=== PATIENT | female | born 1945 | race Caucasian/White ===

== ENCOUNTER 2022-08-09 09:39 | Observation (INO) | payer OTHER ==
--- OUTSIDE RECORDS SUMMARY | 2022-08-09 09:43 | XMS REPORT | Continuity of Care Document ---
:1945 Author Organization [facility] t Address [address] [place] [address] Care Team Providers Name Role Phone Adalberto Leon Attending Clinician Unavailable Dani Attending Clinician Unavailable Ro Alcantara Attending Clinician Unavailable Ugo Valverde Attending Clinician Unavailable UNDEFINED Admitting Clinician Unavailable Physician, No Primary or Family Admitting Clinician Unavaila ble Dani Admitting Clinician Unavailable Ro Alcantara Admitting Clinician Unavailable Adalberto Leon Admitting Clinician Unavailable Ugo Valverde Admitting Clinician Unavailable Payers Payer Name Policy Type Policy Number Effective Date Expiration Date Suresh VILLANUEVA (MEDICARE [id number] 2021 REPLACEMENT PPO) 00:00:00 Problems Condition Condition Condition Status Onset Resolution Last Treating Co mments Source Name Details Category Date Date Treatment Clinician Date Body mass Body Mass Problem Active 2017-09 Jami via index 30+ Index 30+ 0-03 [facility] brinda - obesity - Obesity 00:00: 00 Allergies, Adverse Reactions, Alerts Allergy Allergy Status Severity Reaction(s) Onset Inactive Treating Comm ents Source Name Type Date Date Clinician No Known DA Active U 2020-09 [facility] All[facility]ie 0-18 [facility] 00:00: d 00 [facility] No Known DA Active U [facility] Allergie 7-12 Clear s 00:00: Varela 00 [facility] No Known DA Active U [facility] Allergie 03-11 Clear s 00:00: Varela 00 [facility] No Known DA Active U 2013-09 [facility] 0-13 [facility] Social History Smoking Status Start Date Stop Date Source Never Smoker [facility] Medications Ordered Filled Start Stop Current Ordering Indication Dosage Frequency Signature Comments Components Source Medication Medication Date Date Medication? Clinician (SIG) Name Name amlodipine amlodipine No amlodipine [facility] 2.5 mg 2.5 mg 2.5 mg Medical tablet TAKE tablet TAKE tablet 1 TABLET BY 1 TABLET BY TAKE 1 MOUTH EVERY MOUTH EVERY TABLET BY DAY DAY MOUTH EVERY DAY calcium calcium No calcium [facility] 1200mg 1200mg 1200mg Medical diclofenac diclofenac No diclofenac [facility] 1 % topical 1 % topical 1 % M edical gel APPLY 4 gel APPLY 4 topical GRAMS TO GRAMS TO gel APPLY THE THE 4 GRAMS TO AFFECTED AFFECTED THE AREA(S) BY AREA(S) BY AFFECTED TOPICAL TOPICAL AREA(S) BY ROUTE 4 ROUTE 4 TOPICAL TIMES PER TIMES PER ROUTE 4 DAY DAY TIMES PER DAY escitalopra escitalopra No escitalopr [facility] m 10 mg m 10 mg am 10 mg Medic al tablet TAKE tablet TAKE tablet 1 TABLET BY 1 TABLET BY TAKE 1 MOUTH EVERY MOUTH EVERY TABLET BY DAY DAY MOUTH EVERY DAY levothyroxi levothyroxi No levothyrox [facility] ne 150 mcg ne 150 mcg ine 150 Medical tablet TAKE tablet TAKE mcg tablet 1 TABLET BY 1 TABLET BY TAKE 1 MOUTH EVERY MOUTH EVERY TABLET BY OTHER DAY OTHER DAY MOUTH ALT WITH ALT WITH EVERY SYNTHROID SYNTHROID OTHER DAY 175MCG 175MCG ALT WITH SYNTHROID 175MCG losartan losartan No losartan Jami via 100 mg 100 mg 100 mg Medical tablet TAKE tablet TAKE tablet 1 TABLET BY 1 TABLET BY TAKE 1 MOUTH EVERY MOUTH EVERY TABLET BY DAY DAY MOUTH EVERY DAY metformin metformin No metformin [facility] ER 500 mg ER 500 mg ER 500 mg Medical tablet,exte tablet,exte tablet,ext nded nded ended release 24 release 24 release 24 hr TAKE 2 hr TAKE 2 hr TAKE 2 TABLETS BY TABLETS BY TABLETS BY MOUTH EVERY MOUTH EVERY MOUTH DAY AT DAY AT EVERY DAY BEDTIME BEDTIME AT BEDTIME nitrofurant nitrofurant No nitrofuran [facility] oin oin toin Medical monohydrate monohydrate monohydrat /macrocryst /macrocryst e/macrocry als 100 mg als 100 mg stals 100 capsule 1 capsule 1 mg capsule tablet tablet 1 tablet after after after cystoscopy, cystoscopy, cystoscopy second second , second tablet 12 tablet 12 tablet 12 hours later hours later hours later nystatin nystatin No nystatin [facility] via 100,000 100,000 100,000 Medica l unit/gram unit/gram unit/gram topical topical topical cream APPLY cream APPLY cream 1 1 APPLY 1 APPLICATION APPLICATION APPLICATIO EXTERNALLY EXTERNALLY N TWICE A DAY TWICE A DAY EXTERNALLY FOR 7 DAYS FOR 7 DAYS TWICE A DAY FOR 7 DAYS Ocuvite Ocuvite No Ocuvite [facility] rosuvastati rosuvastati No rosuvastat [facility] n 10 mg n 10 mg in 10 mg Medic al tablet TAKE tablet TAKE tablet 1 TABLET BY 1 TABLET BY TAKE 1 MOUTH EVERY MOUTH EVERY TABLET BY DAY DAY MOUTH EVERY DAY Trelegy Trelegy No Trelegy [facility] Ellipta 100 Ellipta 100 [facility] Medical mcg-62.5 mcg-62.5 100 mcg-25 mcg mcg-25 mcg mcg-62.5 powder for powder for mcg-25 mcg inhalation inhalation powder for INHALE 1 INHALE 1 inhalation PUFF BY PUFF BY INHALE 1 MOUTH EVERY MOUTH EVERY PUFF BY DAY DAY MOUTH EVERY DAY trospium ER trospium ER No 1capsul Q1D trospium [facility] 60 mg 60 mg e(s) ER 60 mg Medical capsule,ext capsule,ext capsule,ex ended ended tended release 24 release 24 release 24 hr Take 1 hr Take 1 hr Take 1 capsule capsule capsule every day every day every day by oral by oral by oral route as route as route as directed directed directed for 90 for 90 for 90 days. days. days. Vitamin D3 Vitamin D3 No Vitamin D3 [facility] zolpidem 10 zolpidem 10 No zolpidem [facility] mg tablet mg tablet 10 mg Medi brinda TAKE 1 TAKE 1 tablet TABLET BY TABLET BY TAKE 1 MOUTH EVERY MOUTH EVERY TABLET BY DAY AT DAY AT MOUTH BEDTIME BEDTIME EVERY DAY NEEDED NEEDED AT BEDTIME NEEDED Vital Signs Vital Name Observation Time Observation Value Comments Source BP Diastolic 2022-08-05 00:00:00 100 mm[Hg] Yobany Diaz joaquín Height 2022-08-05 00:00:00 64 [in_i] Yobany Diaz joaquín BMI (Body Mass Index) 2022-08-05 00:00:00 30.9 kg/m2 [facility] BP Systolic 2022-08-05 00:00:00 169 mm[Hg] Yobany Diaz edical Body Weight 2022-08-05 00:00:00 180 [lb_av] Yobany Diaz edical Procedures Procedure Date / Time Performing Clinician Source Performed [id number] 2021-06-23 00:00:[address] [facility] Orthopedic - Knee 2020-09-06 00:00:00 [facility] Orthopedic - Knee 2013-09-06 00:00:00 [facility] Replacement Hysterectomy - Vaginal 1977-09-06 00:00:00 [facility] Plan of Care Planned Activity Planned Date Details Comments Source Diagnostic Test Pending 2022-08-05 00:00:00 [facility] complete [code = urinalysis, complete] Diagnostic Test Pending 2022-08-05 00:00:00 culture, urine [facility] Medical [code = culture, urine] Future Appointment 2022-09-17 13:00:00 Tami Hutchins, [address] [facility] Medical [address]; [address], [place] [address] Encounters Start End Encounter Admission Attending Care Care Encounter Source Date/Time Date/Time Type Type Clinicians Facility Department ID 2021-06-23 Inpatient GLADYS LeonTO [id number] [facility] 09:15:00 Adalberto [id number] [facility] 2021-05-26 Inpatient GLADYS LeonTO [id number] [facility] 15:00:00 Adalberto [id number] [facility] 2021-01-20 Inpatient EL GLADYS Leon [facility] [id number] [facility] 13:00:00 Adalberto [id number] [facility] 2022-08-05 2022-08-05 Outpatient DAVE PRIV PRIV [id number] [facility] 00:00:00 00:00:00 _Flora [id number] Medica l 2022-08-05 2022-08-05 [facility] [id number] [facility] DAVE Hines MD: [id number], Office* [address], [place] [address] , Ph. [phone] 2022-07-28 2022-07-28 Outpatient [facility] PRIV PRIV [id number] [facility] 00:00:00 00:00:00 _Flora [id number] Medica l 2022-07-06 2022-07-06 Outpatient [facility] PRIV PRIV [id number] [facility] 00:00:00 00:00:00 _Flora [id number] Medica l 2021-11-04 2021-11-04 Outpatient MARCO Alcantara [facility] REY [id number] [facility] 08:00:00 08:00:00 Ro 59 [facility] 2021-06-23 2021-06-24 Inpatient MARCO Leon [facility] [id number] [facility] 08:55:00 13:16:00 Adalberto 85 [facility] 2021-05-26 2021-05-26 Outpatient MARCO Leon RITCHIETO 3DAY [id number] [facility] 09:00:00 23:00:00 Adalberto 90 [facility] 2021-05-26 2021-05-26 Outpatient Edward HCACL LABO [id number] [facility] 18:17:00 18:17:00 Adalberto 16 [facility] 2021-05-26 2021-05-26 Outpatient Edward HCAWU REFE [id number] [facility] 18:07:00 18:07:00 Adalberto 49 [facility] 2021-03-17 2021-03-17 Outpatient EL Elkousliz, HCAT[facility] DAYS [id number] [facility] 05:41:00 05:41:00 Ugo [id number] [facility] 2021-03-11 2021-03-11 Outpatient Marcokalliz, HCAC[facility] LABO [id number] [facility] 18:16:00 18:16:00 Ugo 82 [facility] 2021-03-11 2021-03-11 Inpatient EL Elchandler, [facility]G [id number] [facility] 14:40:00 14:40:00 Ugo [id number] [facility] 2020-10-31 2020-10-31 Outpatient RICHARDSON Alva [id number] [facility] 12:00:00 12:00:00 Ro Alejandro [facility] 2019-09-25 2019-09-25 Outpatient RICHARDSON Alva [id number] [facility] 12:00:00 12:00:00 Ro Thompson [facility] 2018-06-17 2018-06-17 Outpatient GC_SWHAWPRC PRIV PRIV [id number] [facility] 00:00:00 00:00:00 _Cathey [id number] Medica l Results Test Description Test Time Test Comments Results Result Comments Source GLUBED 2021-06-24 08:28:00 Test Item Value Reference Range Interpretation Comme nts GLUBED (test code = GLUBED) 237 mg/dL 60-125 H BASIC METABOLIC [id number] 06:49:00 Test Item Value Reference Range Interpretation Comments SODIUM (test code = 141 mmol/L 136-145 N NA) POTASSIUM (test code = 4.9 mmol/L 3.5-5.1 N K) CHLORIDE (test code = 104.0 mmol/L 98-107 N CL) CARBON DIOXIDE (test 30.1 mmol/L 21-32 N code = CO2) GLUCOSE (test code = 174 mg/dL 70-110 H GLU) BLOOD UREA NITROGEN 19 mg/dL 7-18 H (test code = BUN) GLOMERULAR FILTRATION 74.9 >60 Unit o f measure: RATE (test code = GFR) mL/mi n/1.73 [id number] Range:Healthy Adults >90 mL/min/1.73 m2 For Chronic Kidney Disease: Stage II Mild Decrease i n GFR 60-90 Stage III Moderate Decrea se in GFR 30-59 St age IV Severe Decre ase in GFR 15-29 St age V Kidney Failur e <15 CREATININE (test code 0.75 mg/dL 0.55-1.30 N = CREAT) CALCIUM (test code = 8.2 mg/dL 8.2-10.1 N CA) HGB [id number] 06:01:00 Test Item Value Reference Range Interpretation Comments HEMOGLOBIN (test code = HGB) 11.3 g/dL 12-16 L HEMATOCRIT (test code = HCT) 34.0 % 37-47 L SPECIMEN COMMENT: POD #[id number] 05:47:00 Test Item Value Reference Range Interpretation Comments GLUBED (test code = GLUBED) 158 mg/dL 60-125 H [id number] 20:08:00 Test Item Value Reference Range Interpretation Comments GLUBED (test code = GLUBED) 232 mg/dL 60-125 H [id number] 11:19:00 Test Item Value Reference Range Interpretation Comments GLUBED (test code = GLUBED) 152 mg/dL 60-125 H [id number] 09:24:00 Test Item Value Reference Range Interpretation Comments GLUBED (test code = GLUBED) 149 mg/dL 60-125 H GLYCOSYLATED HEMOGLOBIN (HA1C)2021-05-26 20:30:00 Test Item Value Reference Range Interpretation Comments GLYCOSYLATED 7.3 % 4.8-5.9 H Any condition t hat shortens HEMOGLOBIN (HA1C) erythocyte survival or (test code = GLYHGB) decreas esmean erythrocyte age (e.g., jaspreet very from acute blood los s,hemolytic anemai) will fa lsely lower HGBA1c resultsr egardless of the method used . HGBA1c results frompat ients with HbSS, HbCC and HbSc must be interpreted wit hcaution given the patho logical processes, incl uding anemia,increase d red cell turnover, trans fusion requirements, t hatadversely impact HGBA1c a s a marker of long-term glycemiccontrol . Alternative for ms of testing such as fructosaminesho uld be considered for these patients.Any co ndition that shortens erytho cyte survival or dec reasesmean erythrocyte age (e.g., recovery from a cute blood loss,hemolytic anemia) will falsely lower H GBA1c resultsregardle ss of the method used. HG BA1c results from patientswi th HbSS, HbCC, and HbSc must be interpreted wit h cautiongiven th e pathological pr ocesses, including anemi a,increased red cell turnov er, transfusion req uirements, thatadversely i mpact HGBA1c as a marker of long-term glycemiccontrol . Alternative for ms of testing such as fructosaminesho uld be considered for these patients.DONE A T: [facility] [address] [place], [place] [address] GLYCOSYLATED HEMOGLOBIN (HA1C)2021-05-26 20:30:00 Test Item Value Reference Range Interpretation Comments GLYCOSYLATED 7.3 % 4.8-5.9 H Any condition t hat shortens HEMOGLOBIN (HA1C) erythocyte survival or (test code = GLYHGB) decreas esmean erythrocyte age (e.g., jaspreet very from acute blood los s,hemolytic anemia) will fa lsely lower HGBA1c resultsr egardless of the method used . HGBA1c results from lucien canales HbSS, HbCC, and HbSc must be interpreted with cautiongiven th e pathological pr ocesses, including anemi a,increased red cell turnov er, transfusion req uirements, thatadversely i mpact HGBA1c as a marker of long-term glycemiccontrol . Alternative for ms of testing such as fructosaminesho uld be considered for these patients. PROTHROMBIN [id number] 20:04:00 Test Item Value Reference Range Interpretation Comments PROTHROMBIN TIME 10.3 secs 10.1-12.5 N PATIENT (test code = PTP) INTERNATIONAL NORMAL 0.90 <2.0 RECOMME NDED THERAPEUTIC RATIO (test code = RANGE FOR ORAL INR) ANTICOAGULANTTR EATMENT: CONDITION INRPr ophylaxis of venous throm bosis in 2.0 - 3.0 high- risk medical or surg ical patientsTreatme nt of venous thrombos is 2.0 - 3.0Prevention o f embolism 2.0 - 3.0Prevention o f recurrent embol ism, or 3.0 - 4.5 patie nts with mechanical pros thetic intravascular v gomez IS PATIENT ON ANTICOAGULANTS ? NHas Lab been notified if Patient is on Heparin Drip? NOIf Yes, orderCBC, OCCULT BLOOD, PT every other day NTHROMBOPLASTIN TIME [id number] 20:04:00 Test Item Value Reference Range Interpretation Comments PTT ACTIVATED (test code = APTT) 28.2 secs 24.9-37.0 N IS PATIENT ON ANTICOAGULANTS ? NHas Lab been notified if Patient is on Heparin Drip? NOIf Yes, orderCBC, OCCULT BLOOD, PT every other day NCOMPREHENSIVE METABOLIC [id number] 20:00:00 Test Item Value Reference Range Interpretation Comments SODIUM (test code = 143 mmol/L 136-145 N NA) POTASSIUM (test code = 4.1 mmol/L 3.5-5.1 N K) CHLORIDE (test code = 103.0 mmol/L 98-107 N CL) CARBON DIOXIDE (test 29.1 mmol/L 21-32 N code = CO2) GLUCOSE (test code = 153 mg/dL 70-110 H GLU) BLOOD UREA NITROGEN 19 mg/dL 7-18 H (test code = BUN) GLOMERULAR FILTRATION 86.8 >60 Unit o f measure: RATE (test code = GFR) mL/mi n/1.73 [id number] Range:Healthy Adults >90 mL/min/1.73 m2 For Chronic Kidney Disease: Stage II Mild Decrease i n GFR 60-90 Stage III Moderate Decrea se in GFR 30-59 St age IV Severe Decre ase in GFR 15-29 St age V Kidney Failur e <15 CREATININE (test code 0.66 mg/dL 0.55-1.30 N = CREAT) TOTAL PROTEIN (test 6.6 g/dL 6.4-8.2 N code = PROT) ALBUMIN (test code = 3.6 g/dL 3.4-5.0 N ALB) GLOBULIN (test code = 3.0 g/dL 2.2-4.2 N GLOB) ALBUMIN/GLOBULIN RATIO 1.2 0.7-2.0 N (test code = A/G) CALCIUM (test code = 8.9 mg/dL 8.2-10.1 N CA) BILIRUBIN TOTAL (test 0.20 mg/dL 0.2-1.00 N code = BILT) SGOT/AST (test code = 20.0 U/L 15-37 N AST) SGPT/ALT (test code = 37.0 U/L 12-78 N Please note new ALT) normal range. ALKALINE PHOSPHATASE 65 U/L 46-116 N TOTAL (test code = ALKP) CBC W/AUTO [id number] 19:48:00 Test Item Value Reference Range Interpretation Comments WHITE BLOOD CELL (test code = WBC) 8.3 K/mm3 5.8-11.0 N RED BLOOD CELL (test code = RBC) 4.44 M/mm3 4.2-5.4 N HEMOGLOBIN (test code = HGB) 13.9 g/dL 12-16 N HEMATOCRIT (test code = HCT) 41.9 % 37-47 N MEAN CELL VOLUME (test code = MCV) 94 fL 80-98 N MEAN CELL HGB (test code = MCH) 31.3 pg 27-34 N MEAN CELL HGB CONCENTRATION (test 33.2 g/dL 30.8-34.1 N code = MCHC) RED CELL DISTRIBUTION WIDTH (test 13.6 % 11-16 N code = RDW) PLT (test code = PLT) 348 K/mm3 130-400 N MEAN PLATELET VOLUME (test code = 10.1 fL 8.9-12.1 N MPV) NEUTROPHIL % (test code = NT%) 63.0 % 45-70 N LYMPHOCYTE % (test code = LY%) 25.3 % 20-40 N MONOCYTE % (test code = MO%) 8.7 % 3-10 N EOSINOPHIL % (test code = EO%) 2.2 % 1-5 N BASOPHIL % (test code = BA%) 0.7 % 0.0-1.1 N NEUTROPHIL # (test code = NT#) 5.20 K/mm3 2.00-7.50 N LYMPHOCYTE # (test code = LY#) 2.09 K/mm3 1.50-4.00 N MONOCYTE # (test code = MO#) 0.72 K/mm3 0.2-0.8 N EOSINOPHIL # (test code = EO#) 0.18 K/mm3 0.04-0.4 N BASOPHIL # (test code = BA#) 0.06 K/mm3 0.02-0.10 N MANUAL DIFF REQUIRED (test code = NO MANUAL DIFF MDIFF) NUCLEATED RED BLOOD CELL (test 0 % 0-0 N code = NRBC) [id number] 10:46:00 Test Item Value Reference Range Interpretation Comments GLUBED (test code = GLUBED) 121 mg/dL 60-125 N Novel Coronavirus 2018 [id number] 10:07:00 Test Item Value Reference Range Interpretation Comments Novel Coronavirus Negative Negative Positive r esults are 2019 Inhouse (test indicativ e of the presence code = COVNONPUI) ofSARS-CoV -2 RNA, clinical correlation wit h patient historyand othe r diagnostic info rmation is necessary to determinepatien t infection status. Positiv e results do not rule out bacterial infection or co -infection with other viru ses. Negative result s do not preclude SARS-C oV-2 infection andsh ould not be used as the mikayla e basis for patient managementdecis ions. Negative result s must be combined with otherclinical observations, p atient history, and epidemiological information . Detection of SARS-CoV-2 RNA may be affe cted bysample collec tion methods, storag e conditions, and /or stageof infection. Katherine l RNA mutations, vacc inations, antiviraltherap eutics, antibiotics, chemotherapeuti c orimmunosuppres elaine drugs have not been e valuated for effectson d etection. Results are for the identification of SARS-CoV-2 RNA usingthe [employer] M2000 Sy stem under the [facility] Emergen cy UseAuthorizatio n. The testing is perf ormed by personneltraine d in the procedures for the Ramirez M2000 molecular diagnostic SARS-CoV-2 assa y in vitro. Novel Coronavirus 2018 [id number] 10:07:00 Test Item Value Reference Range Interpretation Comments Novel Coronavirus Negative Negative Positive r esults are 2019 Inhouse (test indicativ e of the presence code = COVNONPUI) ofSARS-CoV -2 RNA, clinical correlation wit h patient historyand othe r diagnostic info rmation is necessary to determinepatien t infection status. Positiv e results do not rule out bacterial infection or co -infection with other viru ses. Negative result s do not preclude SARS-C oV-2 infection andsh ould not be used as the mikayla e basis for patient managementdecis ions. Negative result s must be combined with otherclinical observations, p atient history, and epidemiological information . Detection of SARS-CoV-2 RNA may be affe cted bysample collec tion methods, storag e conditions, and /or stageof infection. Katherine l RNA mutations, vacc inations, antiviraltherap eutics, antibiotics, chemotherapeuti c orimmunosuppres elaine drugs have not been e valuated for effectson d etection. Results are for the identification of SARS-CoV-2 RNA usingthe Ramirez M2000 Sy stem under the [facility] Emergen cy UseAuthorizatio n. The testing is perf ormed by personneltraine d in the procedures for the Ramirez M2000 molecular diagnostic SARS-CoV-2 [place] in vitro. - MRI LW JNT W/O CONT [id number] 15:34:00 [facility] : 1945 Sex: FPatient Name: KELVIN CRAWFORD Unit No: [id number] EXAMS: CPT CODE: [id number] MRI LW JNT W/[place] [id number] MRI OF THE RIGHT KNEE DIAGNOSIS: 1. Horizontal tear through the tibial articular surfaceof the body and posterior horn of the medial meniscus with extension into the posterior root and partial extrusion of the body of the meniscus. 2. Horizontal tear of the anterior horn of the lateral men iscus near the meniscal root. 3. Chondromalacia of the patella with partial- thickness cartilage lossand subchondral cyst formation. A moderate to large joint effusion is present without evidence for aloose body. COMMENT: COMPARISON: No prior exams available. Scans were performed in the sagittal, axial and coronal planes utilizing T1, spin density with fat saturation and T2-weighted pulse sequences.Bony and hyaline cartilage abnormalities are present as described. The body and posterior horn of the medial meniscus and the anterior horn the lateral meniscus are torn. The anterior horn of the medial meniscus and the posterior horn of the lateral meniscus are within normal limits in appearance. No abnormality is seen involving the anterior or posterior cruciate or medial or lateral collateral ligaments. The quadriceps and patellar tendons are intact. at 1534 Reported and signed by: Damian Olvera MD CC: Adalberto Leon MD Technologist: Caren Sanchez RT(R) Transcribed D/ (1533) Kelly.JCL [facility] NAME: KELVIN CRAWFORD [address] [facility] PHYS: Adalberto Ortiz : 1945 AGE: 75 SEX: F [place] [address] LOC: Y.MRI PHONE #: [phone] EXAM DATE: 01/20/2021 STATUS: REG CLI FAX #: [phone] RAD #: D/C DT PAGE 1 Signed Report Patient Name: KELVIN CRAWFORD Unit No: [id number] EXAMS: CPT CODE: [id number] MRI LW JNT W/[place] [id number] (Continued) Orig Print D/T: S: 01/20/2021 (1538) [facility] NAME: KELVIN CRAWFORD [address] [facility] PHYS: Adalberto Ortiz : 1945 AGE: 75 SEX: F [place] [address] LOC: Y.MRI PHONE #: [phone] EXAM DATE: 01/20/2021 STATUS: REG CLI FAX #: [phone] RAD #: D/C DT PAGE 2 Signed Report- MRI UP JNT W/O CONT [id number] 14:11:00 Patient Name: KELVIN CRAWFORD Unit No: [id number] EXAMS: CPT CODE: [id number] MRI UP JNT W/[place] [id number] MR of the right shoulder without contrast TECHNIQUE: Paracoronal, parasagittal and axial multisequence images obtained. COMPARISON: None available. FINDINGS: Acromioclavicular joint: Moderate degenerative changes. Rotator cuff: High-grade tear of the anterior supraspinatus insertion measures 1 cm transversely, likely reaching full-thickness. Minimal tendon retraction is present. There is tendinosis and interstitial tear of the posterior supraspinatus and anterior infraspinatus tendons.Moderate atrophy of the teres minor muscle. Long head biceps tendon: The biceps tendon is medially subluxated with superimposed tendinosis. Labrum: No evidence of labral tear. Cartilage/ bone: No full thickness chondral defect. No acute fracture. No suspicious osseous lesion. Other: No joint effusionpresent. IMPRESSION: 1. High-grade tear the anterior supraspinatus tendon, likely full-thickness with minimal tendon retraction. 2. Moderate teres minor muscle atrophy. 3. Subluxation and tendinosis ofthe long head of the biceps tendon. at 1411 Reported and signed by: Oral William M.D. CC: Reyes Easton MD Technologist: Joe Olvera(R) Transcribed D/ (0872) Rolando [facility] NAME: KELVIN CRAWFORD [address] [facility] PHYS: Reyes Maharaj : 1945 AGE: 74 SEX: F [place] [address] LOC: Y.MRI PHONE #: [phone] EXAM DATE: 04/27/2019 STATUS: DEP CLI FAX #: [phone] RAD #: D/C DT PAGE 1 Signed Report Patient Name: KELVIN MURILLO Unit No: [id number] EXAMS: CPT CODE: [id number] MRI [place] JNT W/[place] [id number] (Continued) Orig Print D/T: S: 04/29/2019 (1414) [facility] NAME: KELVIN CRAWFORD[address] [facility] PHYS: Reyes Maharaj : 1945 AGE: 74 SEX: F [place] [address] LOC: Y.MRI PHONE #: [phone] EXAM DATE: 04/27/2019 STATUS: DEP CLI FAX #: [phone] RAD #: D/C DT PAGE 2 Signed Report
[2022-08-09 10:35] LABS: Urine Blood Negative (Negative); Urine Glucose Negative (Negative); Urine Protein Negative (Negative); Urine Specific Gravity >=1.030 (1.005-1.030); Urine pH 5.5 (5.0-7.0)
--- NOTE | 2022-08-09 10:39 | RAD REPORT ---
EXAM DESCRIPTION: CT - Ct Stroke Brain Wo Cont - 08/09/2022 10:23 am CLINICAL HISTORY: Neuro deficit, acute, stroke suspected, Stroke protocol examination COMPARISON: <Comparisons>none TECHNIQUE: Axial 5 millimeter thick images of the head were obtained without IV contrast. All CT scans are performed using dose optimization technique as appropriate and may include automated exposure control or mA/KV adjustment according to patient size. FINDINGS: No intracranial hemorrhage, mass, or cerebral edema. No acute cortical based infarction se en. No cortical edema or sulcal effacement. Patient has atrophy changes are minimal. Ventricles are n ormal for the amount of volume loss. Chronic ischemic change seen in the cerebral white matter. No ex tra-axial fluid collections. [place] matter-white matter differentiation is preserved.Dense arterial tr ee calcifications are present. No globe or orbital content abnormality. Visualized portions of the mastoid air cells, paranasal sinuses, and orbits are unremarkable. Findings telephoned to Dr Boyle 10:34 a.m.. IMPRESSION: No hemorrhage. No acute CVA identifiable. Patient has minimal atrophy and mild chronic ischemic change.
[2022-08-09 10:49] LABS: Absolute Lymphocytes (CBC) 1.8 K/uL (0.7-4.9); Hematocrit 40.4 % (36.0-45.0); Lymphocytes % 22.5 % (15.3-44.8); MCV 91.3 fL (80-100); MPV 7.3 fL (7.6-11.3); RBC Red Blood Cell Count 4.42 M/uL (3.86-4.86)
[2022-08-09] MEDS ORDERED: FOLIC ACID 5 MG/ML VIAL ONE (10:49)
[2022-08-09 10:50] LABS: Protime INR 0.93
[2022-08-09 11:02] LABS: SARS-CoV-2 Antigen Rapid Res Negative (Negative)
[2022-08-09 11:03] LABS: Albumin 3.6 g/dL (3.4-5.0); BUN Blood Urea Nitrogen 14 mg/dL (7-18); Bicarbonate 29 mmol/L (21-32); Glucose Level 174 mg/dL (74-106); Magnesium 1.6 mg/dL (1.8-2.4); Potassium 3.3 mmol/L (3.5-5.1); Sodium Level 139 mmol/L (136-145)
[2022-08-09] MEDS ORDERED: ASPIRIN 81 MG CHEWABLE TABLET ONE ×2 (11:03→13:25)
[2022-08-09 11:11] LABS: ALT/SGPT 40 U/L (12-78); AST/SGOT 21 U/L (15-37); Alkaline Phosphatase 77 U/L (45-117); Bilirubin Direct < 0.1 mg/dL (0-0.2); Bilirubin Total 0.3 mg/dL (0.2-1.0); Glomerular Filtration Rate 89 ml/min (=/>90); NT PRO-BNP 42 pg/mL (<450); Protein, Total 6.9 g/dL (6.4-8.2); Troponin High Sensitivity 8.4 pg/mL (<58.9)
--- NOTE | 2022-08-09 11:29 | RAD REPORT ---
EXAM DESCRIPTION: CT - Neck Angio - 08/09/2022 11:07 am CLINICAL HISTORY: Neuro deficit, acute, stroke suspected TECHNIQUE: During dynamic enhancement using nonionic IV contrast, axial 2 mm thick images of the nec k were obtained. Sagittal and axial reconstruction images were generated using MIP technique and revi ewed. All CT scans are performed using dose optimization technique as appropriate and may include automated exposure control or mA/KV adjustment according to patient size. COMPARISON: CT head same date, CT angio head same date FINDINGS: No aneurysm or vascular malformation identified. No carotid or vertebral dissection. No aortic arch or great vessel origin abnormality seen. Vertebral artery origins unremarkable as well . No stenosis, vasculitis or other significant carotid artery finding. Minimal atherosclerotic change s present at each carotid bulb without luminal narrowing. No focal abnormality of either vertebral ar janes. Basilar artery is normal. IMPRESSION: Negative CT angio neck examination.
--- NOTE | 2022-08-09 11:31 | RAD REPORT ---
EXAM DESCRIPTION: CT - Head angio - 08/09/2022 11:07 am CLINICAL HISTORY: Neuro deficit, acute, stroke suspected TECHNIQUE: During dynamic enhancement using nonionic IV contrast, axial 1 millimeter thick images of the head were obtained. Sagittal and axial reconstruction images were generated using MIP technique and reviewed. All CT scans are performed using dose optimization technique as appropriate and may include automated exposure control or mA/KV adjustment according to patient size. COMPARISON: CT head same date, CT angio neck same date FINDINGS: No aneurysm or vascular malformation identified. Major venous sinuses are patent. No stenosis, named branch occlusion, vasculitis or other significant vascular finding identifiable. C arotid atherosclerotic changes are present in the cavernous sinuses. No measurable luminal narrowing. IMPRESSION: Negative CT angio head examination for acute or significant finding.
--- NOTE | 2022-08-09 12:12 | RAD REPORT ---
EXAM DESCRIPTION: RAD - Chest Single View - 08/09/2022 11:44 am CLINICAL HISTORY: COUGH, code stroke chest film COMPARISON: None TECHNIQUE: AP portable chest image was obtained 08/09/2022 11:44 am . FINDINGS: Lungs are clear. Heart and vasculature are normal. No measurable pleural effusion and no p neumothorax. Hazy appearance to the hemidiaphragm and left costophrenic angle believed to be portable exam artifact. No acute bony abnormality seen. No acute aortic findings suspected. IMPRESSION: No acute cardiopulmonary process.
--- NOTE | 2022-08-09 12:31 | EDPHYS ---
Physician Documentation [facility] Name: Sil Díaz Age: 77 yrs Sex: Female : 1945 Arrival Date: 08/09/2022 Time: 09:41 Bed 3 Private MD: Isael Levin T ED Physician Rafa Boyle HPI: 08/09 12:27 This 77 yrs old Unknown Female presents to ER via Ambulatory with complaints of aniya Dizziness, High Blood Pressure. 12:27 The patient presents with dizziness, generalized weakness, lightheadedness, sense of aniya spinning. Onset: The symptoms/episode began/occurred 3 day(s) ago. Context: occurred. Modifying factors: The symptoms are alleviated by nothing, the symptoms are aggravated by standing up. Associated signs and symptoms: Pertinent positives: confusion. Severity of symptoms: At their worst the symptoms were mild in the emergency department the symptoms are unchanged. Patient's baseline: Neuro: alert and fully oriented. The patient has experienced similar episodes in the past, a few times. Historical: - Allergies: 10:13 No Known Allergies; kb3 - PMHx: 10:13 Hypercholesterolemia; Hypertensive disorder; NIDDM; Bladder spasms; COPD; kb3 - PSHx: 10:13 Total abdominal hysterectomy; Cholecystectomy; Bilateral Knee Sx; kb3 - Immunization history:: Adult Immunizations up to date, Client reports having NOT received the Covid vaccine. Last tetanus immunization: unknown. - Social history:: Smoking status: Patient reports the use of cigarette tobacco products, denies chronic smoking, but will smoke occasionally. - Family history:: not pertinent. ROS: 12:27 Constitutional: Negative for fever, chills, and weight loss, Eyes: Negative for injury, aniya pain, redness, and discharge, ENT: Negative for injury, pain, and discharge, Neck: Negative for injury, pain, and swelling, Cardiovascular: Negative for chest pain, palpitations, and edema, Respiratory: Negative for shortness of breath, cough, wheezing, and pleuritic chest pain, Abdomen/GI: Negative for abdominal pain, nausea, vomiting, diarrhea, and constipation, Back: Negative for injury and pain, : Negative for injury, bleeding, discharge, and swelling, MS/Extremity: Negative for injury and deformity, Skin: Negative for injury, rash, and discoloration, Psych: Negative for depression, anxiety, suicide ideation, homicidal ideation, and hallucinations, Allergy/Immunology: Negative for hives, rash, and allergies, Endocrine: Negative for neck swelling, polydipsia, polyuria, polyphagia, and marked weight changes, Hematologic/Lymphatic: Negative for swollen nodes, abnormal bleeding, and unusual bruising. 12:27 Neuro: Positive for altered mental status, dizziness, weakness. Exam: 12:27 Constitutional: This is a well developed, well nourished patient who is awake, alert, aniya and in no acute distress. Head/Face: Normocephalic, atraumatic. Eyes: Pupils equal round and reactive to light, extra-ocular motions intact. Lids and lashes normal. Conjunctiva and sclera are non-icteric and not injected. Cornea within normal limits. Periorbital areas with no swelling, redness, or edema. ENT: Nares patent. No nasal discharge, no septal abnormalities noted. Tympanic membranes are normal and external auditory canals are clear. Oropharynx with no redness, swelling, or masses, exudates, or evidence of obstruction, uvula midline. Mucous membranes moist. Neck: Trachea midline, no thyromegaly or masses palpated, and no cervical lymphadenopathy. Supple, full range of motion without nuchal rigidity, or vertebral point tenderness. No Meningismus. Chest/axilla: Normal chest wall appearance and motion. Nontender with no deformity. No lesions are appreciated. Cardiovascular: Regular rate and rhythm with a normal S1 and S2. No gallops, murmurs, or rubs. Normal PMI, no JVD. No pulse deficits. Respiratory: Lungs have equal breath sounds bilaterally, clear to auscultation and percussion. No rales, rhonchi or wheezes noted. No increased work of breathing, no retractions or nasal flaring. Abdomen/GI: Soft, non-tender, with normal bowel sounds. No distension or tympany. No guarding or rebound. No evidence of tenderness throughout. Back: No spinal tenderness. No costovertebral tenderness. Full range of motion. Female : Normal external genitalia. Skin: Warm, dry with normal turgor. Normal color with no rashes, no lesions, and no evidence of cellulitis. MS/ Extremity: Pulses equal, no cyanosis. Neurovascular intact. Full, normal range of motion. Neuro: Awake and alert, GCS 15, oriented to person, place, time, and situation. Cranial nerves II-XII grossly intact. Motor strength 5/5 in all extremities. Sensory grossly intact. Cerebellar exam normal. Normal gait. Psych: Awake, alert, with orientation to person, place and time. Behavior, mood, and affect are within normal limits. 12:27 ECG was reviewed by the Attending Physician. Vital Signs: 10:07 BP 155 / 110; Pulse 95; Resp 20; Temp 97.6; Pulse Ox 97% ; Weight 81.65 kg; Height 5 kb3 ft. 4 in. (162.56 cm); Pain 5/10; 10:43 BP 146 / 95; Pulse 76; Resp 18; Pulse Ox 97% on R/A; ld1 11:54 BP 134 / 86; Pulse 70; Resp 16; Pulse Ox 100% on R/A; ph 13:00 BP 138 / 78; Pulse 72; Resp 18; Pulse Ox 98% on R/A; ph 14:00 BP 146 / 89; Pulse 71; Resp 18; Pulse Ox 98% on R/A; ph 15:00 BP 157 / 90; Pulse 72; Resp 16; Pulse Ox 99% ; ph 16:00 BP 142 / 82; Pulse 71; Resp 18; Pulse Ox 98% on R/A; ph 19:00 BP 159 / 81; Pulse 68; Resp 16; Pulse Ox 99% on R/A; eh3 20:00 BP 156 / 80; Pulse 67; Resp 16; Pulse Ox 98% on R/A; eh3 10:07 Body Mass Index 30.90 (81.65 kg, 162.56 cm) kb3 MDM: 10:08 Patient medically screened. aniya 12:29 Differential diagnosis: cardiac arrhythmia, CVA, generalized weakness, hypovolemia, aniya idiopathic dizziness, near-syncope, TIA, vertigo. Data reviewed: vital signs, nurses notes, lab test result(s), EKG, radiologic studies, CT scan, plain films. Data interpreted: engine monitor: rate is 70 beats/min, rhythm is regular, Pulse oximetry: on room air is 100 %. Test interpretation: by ED physician or midlevel provider: ECG, plain radiologic studies. Counseling: I had a detailed discussion with the patient and/or guardian regarding: the historical points, exam findings, and any diagnostic results supporting the discharge/admit diagnosis, lab results, radiology results, the need for further work-up and treatment in the hospital. 12:33 ED course: FAMILY WOULD NOT RECEIVE TNK UNDER THESE FINDINGS. aniya 08/09 10:08 Order name: Basic Metabolic Panel; Complete Time: 12:08 aniya 08/09 10:08 Order name: CBC with Diff; Complete Time: 12:08 aniya 08/09 10:08 Order name: LFT's; Complete Time: 12:08 aniya 08/09 10:08 Order name: Magnesium; Complete Time: 12:08 aniya 08/09 10:08 Order name: NT PRO-BNP; Complete Time: 12:08 aniya 08/09 10:08 Order name: PT-INR; Complete Time: 12:08 aniya 08/09 10:08 Order name: Troponin HS; Complete Time: 12:08 aniya 08/09 10:14 Order name: SARS RAPID; Complete Time: 12:08 aniya 08/09 10:14 Order name: Sed Rate; Complete Time: 12:08 aniya 08/09 10:14 Order name: CRP; Complete Time: 12:08 aniya 08/09 10:35 Order name: Urine Dipstick-Ancillary; Complete Time: 12:08 EDMS 08/09 12:33 Order name: Lipase [facility] 08/09 14:05 Order name: CBC with Automated Diff EDMS 08/09 14:05 Order name: CBC with Automated Diff EDMS 08/09 14:05 Order name: Comprehensive Metabolic Panel EDMS 08/09 14:05 Order name: Comprehensive Metabolic Panel EDMS 08/09 14:05 Order name: Lipid Profile EDMS 08/09 14:05 Order name: Lipid Profile EDMS 08/09 14:05 Order name: Magnesium EDMS 08/09 14:05 Order name: Magnesium EDMS 08/09 14:05 Order name: Protime (+INR) EDMS 08/09 14:05 Order name: Protime (+INR) EDMS 08/09 14:05 Order name: Protime (+INR) EDMS 08/09 14:05 Order name: Protime (+INR) EDMS 08/09 14:05 Order name: Protime (+INR) EDMS 08/09 14:05 Order name: Protime (+INR) EDMS 08/09 14:05 Order name: PTT, Activated Partial Thromb EDMS 08/09 14:05 Order name: PTT, Activated Partial Thromb EDMS 08/09 14:05 Order name: PTT, Activated Partial Thromb EDMS 08/09 14:05 Order name: PTT, Activated Partial Thromb EDMS 08/09 10:08 Order name: XRAY Chest (1 view); Complete Time: 12:26 [facility] 08/09 10:08 Order name: EKG; Complete Time: 10:09 [facility] 08/09 10:08 Order name: Cardiac monitoring; Complete Time: 10:41 [facility] 08/09 10:08 Order name: EKG - Nurse/Tech; Complete Time: 10:41 [facility] 08/09 10:08 Order name: IV Saline Lock; Complete Time: 10:41 [facility] 08/09 10:08 Order name: Labs collected and sent; Complete Time: 10:41 [facility] 08/09 10:08 Order name: O2 Per Protocol; Complete Time: 10:41 [facility] 08/09 10:08 Order name: O2 Sat Monitoring; Complete Time: 10:41 [facility] 08/09 10:08 Order name: Urine Dipstick-Ancillary (obtain specimen); Complete Time: 10:41 [facility] 08/09 10:14 Order name: CT Stroke Brain w/o Contrast; Complete Time: 12:08 [facility] 08/09 10:14 Order name: CT Head Angio; Complete Time: 12:08 [facility] 08/09 10:14 Order name: CT Neck Angio [facility] 08/09 10:21 Order name: Neck Angio; Complete Time: 12:08 [facility] 08/09 14:05 Order name: Physical Therapy Consult [facility] 08/09 14:05 Order name: Echo with Doppler [facility] 08/09 14:05 Order name: EKG Electrocardiogram [facility] 08/09 14:05 Order name: PTT, Activated Partial Thromb EDMS 08/09 14:05 Order name: PTT, Activated Partial Thromb EDMS 08/09 14:05 Order name: Brain Wo Cont EDMS 08/09 14:05 Order name: Carotid Artery Bilateral EDMS 08/09 15:11 Order name: Misc. Order: restroom assistance; Complete Time: 19:48 jmm EC:27 Rate is 76 beats/min. Rhythm is regular. QRS [place] is Normal. SC interval is normal. QRS aniya interval is normal. QT interval is normal. No Q waves. T waves are Normal. No ST changes noted. Clinical impression: NSR w/ Non-specific ST/T Changes and No evidence of ischemia. Interpreted by me. Reviewed by me. Administered Medications: 10:50 Drug: foLIC Acid 1 mg Route: IVPB; Site: right antecubital; ld1 11:00 Follow up: Response: No adverse reaction; IV Status: Completed infusion ph 11:36 Drug: Aspirin Chewable Tablet 162 mg Route: PO; ld1 20:01 Follow up: Response: No adverse reaction ph 13:37 Drug: Potassium Effervescent Tablet 25 mEq Route: PO; ph 20:01 Follow up: Response: No adverse reaction ph 13:37 Drug: Magnesium Sulfate 1 grams Route: IVPB; Infused Over: 1 hrs; Site: right ph antecubital; 14:40 Follow up: Response: No adverse reaction; IV Status: Completed infusion ph 13:37 Drug: Aspirin Chewable Tablet 162 mg Route: PO; ph 20:00 Follow up: Response: No adverse reaction ph Disposition Summary: 08/09/22 12:31 Hospitalization Ordered Hospitalization Status: Observation aniya Provider: Armando Norton cha Location: Telemetry/[facility] (observation) aniya Condition: Stable aniya Problem: new aniya Symptoms: have improved aniya Bed/Room Type: Standard aniya Room Assignment: [id number](08/09/22 20:06) mw Diagnosis - Altered mental status, unspecified aniya - Dizziness and giddiness aniya - Essential (primary) hypertension aniya - Hypomagnesemia aniya - Hypokalemia aniya - Tobacco abuse counseling aniya - Tobacco use aniya Forms: - Medication Reconciliation Form aniya - SBAR form aniya Signatures: Dispatcher [employer] Roxanna Marvin RN RN Rafa Patel MD MD cha Mickail, Joel, PA PA jmm Hall, Patricia, RN RN Tara Reddy RN RN ld1 Angelina Jean Baptiste RN RN kb3 Corrections: (The following items were deleted from the chart) 20:06 12:31 aniya mw
--- NOTE | 2022-08-09 12:31 | ER ---
Nurse's Notes [facility] Name: Sil Díaz Age: 77 yrs Sex: Female : 1945 Arrival Date: 08/09/2022 Time: 09:41 Bed 3 Private MD: Isael Levin T Diagnosis: Altered mental status, unspecified;Dizziness and giddiness;Essential (primary) hypertension;Hypomagnesemia;Hypokalemia;Tobacco abuse counseling;Tobacco use Presentation: 08/09 10:07 Chief complaint: Patient states: Pt reports feeling "off' upon waking and slightly kb3 dizzy. As she was driving to [place], a security police pulled her over and stated that she was driving erratically. Pt's daughter was called to scene and pt reported feeling dizzy with right posterior neck pain, no headache at this time but onset of intermittent headaches 1 week ago. Coronavirus screen: Vaccine status: Patient reports being unvaccinated. Client denies travel out of the [place] in the last 14 days. Ebola Screen: Patient negative for fever greater than or equal to 101.5 degrees Fahrenheit, and additional compatible Ebola Virus Disease symptoms Patient denies exposure to infectious person. Patient denies travel to an Ebola-affected area in the 21 days before illness onset. Initial Sepsis Screen: Does the patient meet any 2 criteria? No. Patient's initial sepsis screen is negative. Does the patient have a suspected source of infection? No. Patient's initial sepsis screen is negative. Risk Assessment: Do you want to hurt yourself or someone else? Patient reports no desire to harm self or others. Onset of symptoms was August 09, 2022 at 07:00. 10:07 Method Of Arrival: Ambulatory kb3 10:07 Acuity: FRANKIE 2 kb3 Triage Assessment: 10:11 General: Appears in no apparent distress. Behavior is calm, cooperative, Code Stroke kb3 activated. 10:11 Pain: Complains of pain in back of neck Pain does not radiate. Pain currently is 5 out kb3 of 10 on a pain scale. Quality of pain is described as aching, Pain began 3 hours ago. Historical: - Allergies: 10:13 No Known Allergies; kb3 - PMHx: 10:13 Hypercholesterolemia; Hypertensive disorder; NIDDM; Bladder spasms; COPD; kb3 - PSHx: 10:13 Total abdominal hysterectomy; Cholecystectomy; Bilateral Knee Sx; kb3 - Immunization history:: Adult Immunizations up to date, Client reports having NOT received the Covid vaccine. Last tetanus immunization: unknown. - Social history:: Smoking status: Patient reports the use of cigarette tobacco products, denies chronic smoking, but will smoke occasionally. - Family history:: not pertinent. Screenin:54 Abuse screen: Denies threats or abuse. Denies injuries from another. Nutritional ph screening: No deficits noted. Tuberculosis screening: No symptoms or risk factors identified. Fall Risk None identified. Assessment: 10:11 Reassessment: Code stroke called overhead. ph 10:30 General: Appears in no apparent distress. comfortable, well groomed, Behavior is calm, ph cooperative, appropriate for age, Denies fever, feeling ill. Pain: Denies pain. Neuro: Level of Consciousness is awake, alert, obeys commands, Oriented to person, place, time, situation, Communications Media Professor are equal bilaterally Moves all extremities. Full function Gait is steady, Speech is normal, Facial symmetry appears normal, Facial symmetry: tongue is midline, Pupils are PERRLA, Intact Reports dizziness, since waking this morning. Cardiovascular: Denies chest pain, Capillary refill < 3 seconds in bilateral fingers Patient's skin is warm and dry. Respiratory: Airway is patent Respiratory effort is even, unlabored. GI: No signs and/or symptoms were reported involving the gastrointestinal system. Derm: Skin is healthy with good turgor, Skin is pink, warm \\T\\ dry. Musculoskeletal: Circulation, motion, and sensation intact. Range of motion: intact in all extremities. 11:55 Reassessment: Patient appears in no apparent distress at this time. Patient and/or ph family updated on plan of care and expected duration. Pain level reassessed. Patient is alert, oriented x 3, equal unlabored respirations, skin warm/dry/pink. 13:00 Reassessment: Patient appears in no apparent distress at this time. Patient and/or ph family updated on plan of care and expected duration. Pain level reassessed. Patient is alert, oriented x 3, equal unlabored respirations, skin warm/dry/pink. 14:00 Reassessment: Patient appears in no apparent distress at this time. Patient and/or ph family updated on plan of care and expected duration. Pain level reassessed. Patient is alert, oriented x 3, equal unlabored respirations, skin warm/dry/pink. 15:00 Reassessment: Patient appears in no apparent distress at this time. Patient and/or ph family updated on plan of care and expected duration. Pain level reassessed. Patient is alert, oriented x 3, equal unlabored respirations, skin warm/dry/pink. 16:00 Reassessment: Patient appears in no apparent distress at this time. Patient and/or ph family updated on plan of care and expected duration. Pain level reassessed. Patient is alert, oriented x 3, equal unlabored respirations, skin warm/dry/pink. 17:00 Reassessment: Patient appears in no apparent distress at this time. Patient and/or ph family updated on plan of care and expected duration. Pain level reassessed. Patient is alert, oriented x 3, equal unlabored respirations, skin warm/dry/pink. 19:00 General: Appears in no apparent distress. comfortable, Behavior is calm, cooperative, eh3 appropriate for age. Pain: Denies pain. Neuro: Level of Consciousness is awake, alert, obeys commands, Oriented to person, place, time, situation. Cardiovascular: Capillary refill < 3 seconds Patient's skin is warm and dry. Respiratory: Airway is patent Respiratory effort is even, unlabored, Respiratory pattern is regular, symmetrical. GI: No signs and/or symptoms were reported involving the gastrointestinal system. : No signs and/or symptoms were reported regarding the genitourinary system. EENT: No signs and/or symptoms were reported regarding the EENT system. Derm: No signs and/or symptoms reported regarding the dermatologic system. Musculoskeletal: No signs and/or symptoms reported regarding the musculoskeletal system. 20:00 Reassessment: Patient appears in no apparent distress at this time. Patient and/or eh3 family updated on plan of care and expected duration. Pain level reassessed. Patient is alert, oriented x 3, equal unlabored respirations, skin warm/dry/pink. 20:15 Reassessment: Attempted to call report to 4th floor, nurse was busy and will call back. [facility] Vital Signs: 10:07 BP 155 / 110; Pulse 95; Resp 20; Temp 97.6; Pulse Ox 97% ; Weight 81.65 kg; Height 5 kb3 ft. 4 in. (162.56 cm); Pain 5/10; 10:43 BP 146 / 95; Pulse 76; Resp 18; Pulse Ox 97% on R/A; ld1 11:54 BP 134 / 86; Pulse 70; Resp 16; Pulse Ox 100% on R/A; ph 13:00 BP 138 / 78; Pulse 72; Resp 18; Pulse Ox 98% on R/A; ph 14:00 BP 146 / 89; Pulse 71; Resp 18; Pulse Ox 98% on R/A; ph 15:00 BP 157 / 90; Pulse 72; Resp 16; Pulse Ox 99% ; ph 16:00 BP 142 / 82; Pulse 71; Resp 18; Pulse Ox 98% on R/A; ph 19:00 BP 159 / 81; Pulse 68; Resp 16; Pulse Ox 99% on R/A; eh3 20:00 BP 156 / 80; Pulse 67; Resp 16; Pulse Ox 98% on R/A; eh3 10:07 Body Mass Index 30.90 (81.65 kg, 162.56 cm) kb3 ED Course: 09:41 Patient arrived in ED. rg4 09:41 Isael Levin MD is Private Physician. rg4 10:07 Rafa Boyle MD is Attending Physician. aniya 10:09 Tara Reddy, YOGESH is Primary Nurse. ld1 10:11 Arm band placed on right wrist. Patient placed in an exam room, on a stretcher. kb3 10:13 Triage completed. kb3 10:25 CT Stroke Brain w/o Contrast In Process Unspecified. EDMS 10:40 SARS RAPID Sent. ld1 10:50 No provider procedures requiring assistance completed. Inserted saline lock: 20 gauge ld1 in right antecubital area, using aseptic technique. Blood collected. 11:09 CT Head Angio In Process Unspecified. EDMS 11:09 Neck Angio In Process Unspecified. EDMS 11:46 XRAY Chest (1 view) In Process Unspecified. EDMS 11:54 Patient has correct armband on for positive identification. Placed in gown. Bed in low ph position. Call light in reach. Side rails up X 1. Client placed on continuous cardiac and pulse oximetry monitoring. NIBP monitoring applied. 12:30 Armando Norton MD is Hospitalizing Provider. aniya 13:37 Patient admitted, IV remains in place. ph 19:27 Primary Nurse role handed off by Tara Reddy RN 19:46 Almita Maldonado, RN is Primary Nurse. eh3 Administered Medications: 10:50 Drug: foLIC Acid 1 mg Route: IVPB; Site: right antecubital; ld1 11:00 Follow up: Response: No adverse reaction; IV Status: Completed infusion ph 11:36 Drug: Aspirin Chewable Tablet 162 mg Route: PO; ld1 20:01 Follow up: Response: No adverse reaction ph 13:37 Drug: Potassium Effervescent Tablet 25 mEq Route: PO; ph 20:01 Follow up: Response: No adverse reaction ph 13:37 Drug: Magnesium Sulfate 1 grams Route: IVPB; Infused Over: 1 hrs; Site: right ph antecubital; 14:40 Follow up: Response: No adverse reaction; IV Status: Completed infusion ph 13:37 Drug: Aspirin Chewable Tablet 162 mg Route: PO; ph 20:00 Follow up: Response: No adverse reaction ph Medication: 11:54 VIS not applicable for this client. ph Outcome: 12:31 Decision to Hospitalize by Provider. aniya 20:46 Admitted to Med/surg accompanied by nurse, via wheelchair, room 408, with chart, Report 3 called to Joseph 20:46 Condition: stable 20:46 Instructed on the need for admit. 20:46 Patient left the ED. 3 Signatures: Dispatcher [employer] EDRafa Drew MD MD cha Hall, Patricia, RN RN Leatha Painting rg4 Marissa Hilton Tara Reddy, RN RN ld1 Almita Maldonado, YOGESH ZUÑIGA 3 Angelina Jean Baptiste RN RN kb3
[2022-08-09] MEDS ORDERED: NICOTINE 21 MG/PAT TD ONE (13:10)
[2022-08-09] MEDS ORDERED: MAGNESIUM SULFATE 1 gm IVPB 1 GM/100 ML BAG IV ONE (13:25)
[2022-08-09] MEDS ORDERED: POTASSIUM 25 MEQ EFFERV TAB ONE (13:25)
[2022-08-09] MEDS ORDERED: ONDANSETRON 4 MG/2 ML VIAL IV PRN (13:58)
[2022-08-09] MEDS ORDERED: ZOLPIDEM TARTRATE 5 MG TABLET PO PRN (13:58)
[2022-08-09] MEDS ORDERED: ACETAMINOPHEN 500 MG TAB PO PRN (13:58)
[2022-08-09] MEDS ORDERED: NA CHLORIDE 0.9% 1,000 ML IV SCH (14:00)
[2022-08-09] MEDS ORDERED: TEMAZEPAM 15 MG CAP PO PRN (14:04)
--- NOTE | 2022-08-09 14:08 | P.HP ---
Certification for Inpatient Patient admitted to: Observation With expected LOS: <2 Midnights Patient will require the following post-hospital care: None Practitioner: I am a practitioner with admitting privileges, knowledge of patient current condition, hospital course, and medical plan of care. Services: Services provided to patient in accordance with Admission requirements found in Title 42 Section 412.3 of the Code of Federal Regulations Patient History Date of Service: 08/09/22 Reason for admission: Transient amnesia/vertigo History of Present Illness: Patient is a 77-year-old female who came to the hospital with transient amnesia. 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 The police were called out and when she was confronted she did not really know where she was and was not as sure how she got there. Currently, she is feeling better and ambulating better. She is more aware of where she is now but she does not remember the events of this morning. She will be admitted to the hospital for further neurologic work-up. - Past Medical/Surgical History Past Medical History: Patient denies medical history Past Surgical History: Patient denies surgical history - Family History Father Family History: Reviewed- Non-Contributory - Social History Smoking Status: Never smoker Alcohol use: No CD- Drugs: No Review of Systems 10-point ROS is otherwise unremarkable Physical Examination - Vital Signs Temperature: 98 F Blood Pressure: 140/70 Pulse: 80 Respirations: 18 Pulse Ox (%): 95 - Physical Exam General: Alert, In no apparent distress, Oriented x3 HEENT: Atraumatic, PERRLA, Mucous membr. moist/pink, EOMI, Sclerae nonicteric Neck: Supple, 2+ carotid pulse no bruit, No LAD, Without JVD or thyroid abno rmality Respiratory: Clear to auscultation bilaterally, Normal air movement Cardiovascular: Regular rate/rhythm, Normal S1 S2 Gastrointestinal: Normal bowel sounds, Soft and benign, Non-distended, No tenderness Musculoskeletal: No clubbing, No swelling, No tenderness Integumentary: No rashes Neurological: Normal gait, Normal speech, Normal strength at 5/5 x4 extr, Normal tone, Sensation intact, Cranial nerves 3-12 intact, Normal affect Lymphatics: No axilla or inguinal lymphadenopathy - Studies Laboratory Data (last 24 hrs) 08/09/22 10:34: Lipase 190 08/09/22 10:34: PT 10.2, INR 0.93 08/09/22 10:34: WBC 7.80, Hgb 13.9, Hct 40.4, Plt Count 298 08/09/22 10:34: Sodium 139, Potassium 3.3 L, BUN 14, Creatinine 0.68, Glucose 174 H, Magnesium 1.6 L, Total Bilirubin 0.3, AST 21, ALT 40, Alkaline Phosphatase 77 Assessment & Plan - Problems (Diagnosis) (1) Transient amnesia Current Visit: Yes Status: Acute (2) Vertigo Current Visit: Yes Status: Acute (3) Ambien use disorder, moderate Current Visit: Yes Status: Acute - Plan 1. MRI of the brain 2. Antiplatelet and statin therapy 3. Lipid profile 4. Physical therapy and bedside swallow evaluation 5. DVT prophylaxis 6. Neurochecks every 4 hours 7. Reassess stroke scale 8. GI and DVT prophylaxis Discharge Plan: Home Plan to discharge in: Greater than 2 days - Advance Directives Does patient have a Living Will: No Does patient have a Durable POA for Healthcare: No - Code Status/Comfort Care Code Status Assessed: Yes Code Status: Full Code Critical Care: No Time Spent Managing PTS Care (In Minutes): 45
--- NOTE | 2022-08-09 16:01 | RAD REPORT ---
EXAM DESCRIPTION: US - CP - 08/09/2022 2:38 pm CLINICAL HISTORY: cva COMPARISON: Neck Angio dated 08/09/2022 TECHNIQUE: Real-time sonographic evaluation of bilateral carotid and vertebral systems was performed . De La Cruz scale and Doppler interrogation were performed with waveform tracing bilaterally. FINDINGS: Normal high resistance waveforms are noted in both external carotid arteries. The common c arotid arteries and internal carotid arteries show normal low resistance waveforms. Calcified plaquing changes are present in each carotid bulb. Visually there is no significant degree of luminal narrowing. No dissection findings Peak systolic and end diastolic velocity values and the ICA/CCA ratios are in the non-hemodynamically significant range. Antegrade flow seen in both vertebral arteries. Velocity values and ratios were recorded and are retained in the patient's imaging records. IMPRESSION: Bilateral carotid bulb calcified plaquing changes. Plaquing changes do not cause hemodynamically significant degrees of stenosis.
[2022-08-09 19:59] VITALS: BMI 30.9
[2022-08-09] MEDS ORDERED: ATORVASTATIN 20 MG TAB ONE (20:12)
[2022-08-09] MEDS ORDERED: ATORVASTATIN 20 MG TAB PO SCH (21:00)
[2022-08-09 21:05] VITALS: O2SAT 98
[2022-08-09] MEDS ORDERED: HYDRALAZINE HCL 20 MG/ML VIAL IV PRN (21:51)
[2022-08-09] MEDS ORDERED: HOME MED 1 EA UNK (Levothyroxine Sodium [Synthroid] 175 MCG Tablet) PO SCH (22:00)
[2022-08-09] MEDS ORDERED: LEVOTHYROXINE SOD 0.05 MG TABLET PO SCH (22:00)
[2022-08-09] MEDS: AMLODIPINE 2.5 MG TAB PO SCH (22:07)
[2022-08-09] MEDS: LOSARTAN POTASSIUM 50 MG TABLET FT SCH (22:07)
[2022-08-10 03:50] LABS: Hematocrit 37.5 % (36.0-45.0); Lymphocytes % 26.6 % (15.3-44.8); MCV 91.5 fL (80-100); MPV 7.4 fL (7.6-11.3); RBC Red Blood Cell Count 4.09 M/uL (3.86-4.86)
[2022-08-10 03:54] LABS: Protime INR 0.91
[2022-08-10 04:01] LABS: Albumin 3.1 g/dL (3.4-5.0); Bilirubin Total 0.3 mg/dL (0.2-1.0); Magnesium 1.8 mg/dL (1.8-2.4); Potassium 3.7 mmol/L (3.5-5.1); Protein, Total 6.1 g/dL (6.4-8.2)
[2022-08-10 04:30] VITALS: TEMP 97.1
[2022-08-10] MEDS ORDERED: MAGNESIUM SULFATE 1 gm IVPB 1 GM/100 ML BAG IV ONE (07:30)
--- NOTE | 2022-08-10 08:19 | RAD REPORT ---
EXAM DESCRIPTION: MRI - Brain Wo Cont - 08/10/2022 8:03 am CLINICAL HISTORY: CVA/vertigo COMPARISON: Head angio dated 08/09/2022; Neck Angio dated 08/09/2022; Ct Stroke Brain Wo Cont dated TECHNIQUE: Sagittal T1-weighted images were obtained along with axial PD, heavily T2-weighted and T2 -FLAIR images. Axial DWI and ADC mapping sequences were also obtained along with coronal heavily T2-w eighted images. FINDINGS: No intracranial hemorrhage, mass or acute infarction. There is no edema or shift of midlin e structures. No extra-axial fluid collections. De La Cruz-matter/white matter junction is preserved. Signa l voids are seen as a normal finding in the major intracranial vessels. Patient has very little atrop hy with ventricles in proportion to any volume loss that may be present. Cerebral white matter shows mild chronic ischemic change. This spares the thalamus and basal ganglia tissues. There are questiona ble trace amounts of chronic ischemic change in the brainstem. No globe or orbital content abnormality. Mastoid air cells and paranasal sinuses are clear. IMPRESSION: No acute or subacute infarction. No acute intracranial finding. Patient has mild chronic ischemic change in the cerebral white matter and possibly very minimal brain stem chronic ischemic change.
[2022-08-10] MEDS ORDERED: ENOXAPARIN 40 MG/0.4 ML SQ SCH (09:00)
[2022-08-10] MEDS ORDERED: METFORMIN ER 500 MG TAB PO SCH (09:00)
[2022-08-10] MEDS ORDERED: ASPIRIN EC 81 MG TAB PO SCH (09:00)
[2022-08-10] MEDS ORDERED: POTASSIUM CL SA 10 MEQ TAB PO ONE (09:00)
[2022-08-10] MEDS: LOSARTAN POTASSIUM 50 MG TABLET FT SCH (09:41)
[2022-08-10] MEDS: AMLODIPINE 2.5 MG TAB PO SCH (09:42)
[2022-08-10 09:43] VITALS: BP 138/66
--- NOTE | 2022-08-10 11:13 | P.DS ---
Discharge Date: 08/10/22 Disposition: ROUTINE DISCHARGE Discharge Condition: GOOD Reason for Admission: Transient amnesia/vertigo - Problems (1) Transient amnesia Status: Acute (2) Vertigo Status: Acute (3) Ambien use disorder, moderate Status: Acute Brief History of Present Illness: Patient is a 77-year-old female who came to the hospital with transient amnesia. 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 The police were called out and when she was confronted she did not really know where she was and was not as sure how she got there. Currently, she is feeling better and ambulating better. She is more aware of where she is now but she does not remember the events of this morning. She will be admitted to the hospital for further neurologic work-up. Hospital Course: Patient's MRI came back unremarkable. Most likely cause was his Ambien. DC this and try Restoril as it worked pretty good for her last night. If she is not able to sleep and she needs to take the Ambien she needs to have family staying with her or at least taking away her car keys. This time, she is doing well and she is stable for discharge home with outpatient follow-up with neurology and her PCP. Vital Signs/Physical Exam: Temp Pulse Resp BP Pulse Ox 97.1 F 66 18 138/66 96 08/10/22 08:00 08/10/22 09:42 08/10/22 08:00 08/10/22 09:42 08/10/22 08:00 General: Alert, In no apparent distress, Oriented x3 Laboratory Data at Discharge: WBC 7.60 K/uL (4.3-10.9) 08/10/22 03:24 Hgb 12.8 g/dL (12.0-15.0) 08/10/22 03:24 Hct 37.5 % (36.0-45.0) 08/10/22 03:24 Plt Count 271 K/uL (152-406) 08/10/22 03:24 PT 10.0 SECONDS (9.5-12.5) 08/10/22 03:24 INR 0.91 08/10/22 03:24 APTT 29.3 SECONDS (24.3-36.9) 08/10/22 03:24 Sodium 141 mmol/L (136-145) 08/10/22 03:24 Potassium 3.7 mmol/L (3.5-5.1) 08/10/22 03:24 BUN 16 mg/dL (7-18) 08/10/22 03:24 Creatinine 0.68 mg/dL (0.55-1.3) 08/10/22 03:24 Glucose 180 mg/dL (74-106) H 08/10/22 03:24 Magnesium 1.8 mg/dL (1.8-2.4) 08/10/22 03:24 Total Bilirubin 0.3 mg/dL (0.2-1.0) 08/10/22 03:24 AST 19 U/L (15-37) 08/10/22 03:24 ALT 40 U/L (12-78) 08/10/22 03:24 Alkaline Phosphatase 67 U/L (45-117) 08/10/22 03:24 Triglycerides 197 mg/dL (<150) H 08/10/22 03:24 Cholesterol 128 mg/dL (<200) 08/10/22 03:24 HDL Cholesterol 49 mg/dL (40-60) 08/10/22 03:24 Cholesterol/HDL Ratio 2.61 08/10/22 03:24 Lipase 190 U/L (73-393) 08/09/22 10:34 Home Medications: Amlodipine [Norvasc*] 1 tab PO DAILY 08/09/22 Calcium Carbonate [Calcium] 1,200 mg PO DAILY 08/09/22 Cholecalciferol (Vitamin D3) [Vitamin D3] 2 tab PO DAILY 08/09/22 Fluticasone/Umeclidin/Vilanter [Trelegy Ellipta 100-62.5-25] 1 puff IH DAILY 08/09/22 Levothyroxine Sodium [Synthroid] 175 mcg PO Q48H 08/09/22 Levothyroxine [Synthroid*] 150 mcg PO Q48H 08/09/22 Losartan Potassium [Cozaar] 1 tab PO DAILY 08/09/22 Metformin ER [Glucophage ER*] 1,000 mg PO DAILY 08/09/22 Multivitamin [Multiple Vitamins] 1 tab PO DAILY 08/09/22 Rosuvastatin [Crestor*] 1 tab PO BEDTIME 08/09/22 Ubidecarenone [Co Q-10] 1 tab PO DAILY 08/09/22 Vit A/Vit C/Vit E/Zinc/Copper [Preservision Areds Softgel] 1 cap PO DAILY 08/09/22 Temazepam [Restoril] 15 mg PO BEDTIME PRN #20 cap 08/10/22 New Medications: Temazepam [Restoril] 15 mg PO BEDTIME PRN #20 cap PRN Reason: Insomnia Physician Discharge Instructions: -DC IV and DC home -Follow-up with PCP in 1 to 2 weeks -Follow-up with Neurology in 1 to 2 weeks -Please call Dr. Norton at [phone] if any questions regarding hospital stay -Please call nursing station at [phone] if any nursing or medication questions -Return to the emergency room if symptoms worsen Diet: AHA Activity: Fall precautions Followup: Isael Levin MD [Primary Care Provider] - Time spent managing pt's care (in minutes): 35
--- NOTE | 2022-08-10 13:48 | EKG ---
Test Date: 2022-08-09 Test Time: 10:47:38 Retread Builder: RODRIGO MEASUREMENT RESULTS: Intervals: Rate: 76 [place]: 170 QRSD: 94 QT: 374 QTc: 420 [place]: P: 57 [place]: 170 QRS: -63 T: 31 INTERPRETIVE STATEMENTS: Normal sinus rhythm Left anterior fascicular block Abnormal ECG Electronically Signed On 08-10-22 13:45:55 SKI INSTRUCTOR by Singh Toney
--- NOTE | 2022-08-10 14:05 | ECHO ---
HEIGHT: 5 ft 4 in WEIGHT: 180 lb 0.119 oz DATE OF STUDY: 08/10/[address]: Armando Norton MD 2-DIMENSIONAL: YES M.MODE: YES DOPPLER: YES COLOR FLOW: YES TDS: PORTABLE: YES DEFINITY: BUBBLE STUDY: DIAGNOSIS: STROKE CARDIAC HISTORY: CATHERIZATION: NO SURGERY: NO PROSTHETIC VALVE: NO PACEMAKER: NO MEASUREMENTS (cm) DIASTOLIC (NORMALS) SYSTOLIC (NORMALS) IVSd 1.0 (0.6-1.2) LA Diam 3.4 (1.9-4.0) LVEF 69% LVIDd 4.3 (3.5-5.7) LVIDs 2.7 (2.0-3.5) %FS 39% LVPWd 1.2 (0.6-1.2) Ao Diam 2.4 (2.0-3.7) 2 DIMENSIONAL ASSESSMENT: RIGHT ATRIUM: NORMAL LEFT ATRIUM: NORMAL RIGHT VENTRICLE: NORMAL LEFT VENTRICLE: NORMAL TRICUSPID VALVE: NORMAL MITRAL VALVE: MITRAL ANNULAR CALCIFICATION (MILD) PULMONIC VALVE: NORMAL AORTIC VALVE: NORMAL PERICARDIAL EFFUSION: NONE AORTIC ROOT: NORMAL LEFT VENTRICULAR WALL MOTION: NORMAL DOPPLER/COLOR FLOW: MILD MITRAL REGURGITATION, MILD TRICUSPID REGURGITATION COMMENTS: 1. NORMAL LEFT VENTRICULAR EJECTION FRACTION 60-65% WITH NORMAL WALL MOTION 2. MITRAL ANNULAR CALCIFICATION WITH MILD MITRAL REGURGITATION 3. MILD TRICUSPID REGURGITATION 4. GRADE I DIASTOLIC DYSFUNCTION TECHNOLOGIST: [place]
[2022-08-10] MEDS ORDERED: ROSUVASTATIN 10 MG TAB PO SCH (21:00)
[2022-08-10] MEDS ORDERED: ZOLPIDEM TARTRATE 5 MG TABLET PO SCH (21:00)
== END 2022-08-10 10:51 | disposition home or self-care (01) ==
LOC: ER 09:39 → ERHOLD 13:58 → 4TH 20:13
PROVIDERS: ADMIT Hospitalist; ATTEND Hospitalist
DX: G45.4 Transient global amnesia (principal); R42 Dizziness and giddiness; F13.20 Sedative, hypnotic or anxiolytic dependence, uncomplicated; Z20.822 Contact with and (suspected) exposure to COVID-19
CPT/HCPCS: 96365; 93005; 93306; 85025 ×2; 80048; 36415; 83735 ×2; 85610 ×2; 80061; 82565; 80076; 85730; 85652; 81003; 84484; 83690; 80053; 83880; 86140; 70496; 70498; 70450; 71045; 93880; 70551; 96375; 99285; 87811; Q9967; J1650; J3475; G0378